=== PATIENT | female | born 1995 | race Two or more races ===

== ENCOUNTER 2017-04-11 09:20 | Emergency (ER) | payer OTHER ==
[~2017-04-11] VITALS: Ht 167.6 cm; Wt 59.0 kg
--- NOTE | 2017-04-11 10:00 | Emergency Room Report ---
History of Present Illness General Chief Complaint: Syncope Source: Patient Present Illness HPI 21-year-old female no significant past medical history presents with syncope. The patient states that she was sitting outside the stairs with other friends started to feel very lightheaded and nauseous passed out for unknown amount of time reportedly a few minutes. Denies hitting her head. States that she felt that she was going to faint. Denies any preceding chest pain or shortness of breath. Patient states that this has happened in the past to her about 4 times. She has seen a neurologist and told her that she "needs vitamin D." Patient denies any current headache nausea vomiting numbness or tingling of all extremities. Denies any palpitations. Patient denies having history of DVT or PE. Allergies: Coded Allergies: No Known Allergies (Unverified , 04/11/17) Patient History Past Medical History: none Past Surgical History: none Pertinent Family History: none Last Menstrual Period: 02/11/17 Now: No Nursing Documentation-[facility] Past Medical History: No Stated History Review of Systems Neurological: Reports: syncope All Other Systems: negative except mentioned in HPI Physical Exam Vital Signs Date Time Temp Pulse Resp B/P Pulse Ox O2 Delivery O2 Flow Rate FiO2 04/11/17 09:22 97.9 105 16 103/67 100 Room Air Sp02 EP Interpretation: reviewed, normal General Appearance: normal inspection, well appearing, no apparent distress, alert, GCS 15, non-toxic Head: normocephalic, atraumatic Eyes: bilateral eye EOMI, bilateral eye PERRL, bilateral eye normal inspection ENT: normal ENT inspection, normal pharynx, normal voice, moist mucus membranes Neck: normal inspection, full range of motion, supple, no bony tend Respiratory: normal inspection, lungs clear, normal breath sounds, no respiratory distress, no retraction, no wheezing, speaking full sentences, chest symmetrical Cardiovascular #1: normal inspection, no edema, normal capillary refill, tachycardia Gastrointestinal: normal inspection, non tender, soft, non-distended, no guarding Musculoskeletal: normal inspection, back normal, normal range of motion, non- tender Neurologic: normal inspection, alert, oriented x3, responsive, preforming machine operator III-XII nml as tested, motor strength/tone normal, sensory intact, normal gait, speech normal Psychiatric: normal inspection, judgement/insight normal, memory normal Skin: normal inspection, normal color, no rash, warm/dry, well hydrated, normal turgor Medical Decision Making Diagnostic Impression: Primary Impression: Syncope ER Course 21-year-old female with syncope Differential diagnoses Vasovagal versus cardiac arrhythmia versus electrolyte disturbance versus dehydration Plan EKG, chest x-ray routine labs ER course patient has remained stable during ED stay not episodes of syncope states she fels much better ambulating in ED EKG showed possible LEO V2 saddle like morphology concern for Savage D/w Cardiology Dr. Galeana - d/w case, reported not significant ekg as patient also likely with vasovasal syncope given symptoms. will follow up in his office. Patient is to be discharged to home. Patient is instructed to follow up with their primary care doctor within 5 days. Patient is instructed to follow up with cardiology Dr Galeana with 1 week. Strict return precautions discussed with patient such as fever, chills, GUERRA, nausea, vomiting, which may indicate severe illness. Patient verbalizes understanding and agrees with plan. , Laboratory Tests Test 04/11/17 09:15 04/11/17 09:50 04/11/17 13:10 Troponin I < 0.30 ng/mL (<=0.30) White Blood Count 7.6 K/UL (4.8-10.8) Red Blood Count 4.83 M/UL (4.20-5.40) Hemoglobin 15.5 G/DL (12.0-16.0) Hematocrit 45.0 % (37.0-47.0) Mean Corpuscular Volume 93 FL (80-99) Mean Corpuscular Hemoglobin 32.0 PG (27.0-31.0) H Mean Corpuscular Hemoglobin Concent 34.4 G/DL (32.0-36.0) Red Cell Distribution Width 10.7 % (11.6-14.8) L Platelet Count 324 K/UL (150-450) Mean Platelet Volume 8.1 FL (6.5-10.1) Neutrophils (%) (Auto) 77.0 % (45.0-75.0) H Lymphocytes (%) (Auto) 17.9 % (20.0-45.0) L Monocytes (%) (Auto) 4.0 % (1.0-10.0) Eosinophils (%) (Auto) 0.1 % (0.0-3.0) Basophils (%) (Auto) 1.0 % (0.0-2.0) Sodium Level 139 mEQ/L (135-145) Potassium Level 3.7 mEQ/L (3.4-4.9) Chloride Level 99 mEQ/L (98-107) Carbon Dioxide Level 26 mEQ/L (20-30) Anion Gap 14 (5-15) Blood Urea Nitrogen 9 mg/dL (7-23) Creatinine 0.8 mg/dL (0.5-0.9) Estimate Glomerular Filtration Rate > 60 mL/min (>60) Glucose Level 112 mg/dL (74-106) H Calcium Level 9.9 mg/dL (8.6-10.2) Total Bilirubin 0.5 mg/dL (0.0-1.2) Aspartate Amino Transferase (AST) 19 U/L (5-40) Alanine Aminotransferase (ALT) 17 U/L (3-33) Alkaline Phosphatase 26 U/L (35-104) L Total Protein 7.6 g/dL (6.6-8.7) Albumin 5.1 g/dL (3.5-5.2) Globulin 2.5 g/dL Albumin/Globulin Ratio 2.0 (1.0-2.7) Urine HCG, Qualitative Negative EKG Diagnostic Results Rate: tachycardiac Rhythm: NSR ST Segments: other - V2 with possible LEO concern for brugada Rhythm Strip Diag. Results EP Interpretation: yes Rhythm: NSR, no PVC's Chest X-Ray Diagnostic Results Chest X-Ray Diagnostic Results : Chest X-Ray Ordered: Yes # of Views/Limited/Complete: 1 View Indication: Chest Pain EP Interpretation: Yes Interpretation: no acute cardiopulmonary disease Impression: No acute disease Interpreting ER Provider: Electronically signed by Alfreda Valverde M.D. Last Vital Signs Date Time Temp Pulse Resp B/P Pulse Ox O2 Delivery O2 Flow Rate FiO2 04/11/17 09:22 97.9 105 16 103/67 100 Room Air Disposition: HOME, SELF-CARE Condition: Improved Referrals: NON PHYSICIAN (PCP) Alfreda Valverde M.D. Apr 11, 2017 10:00
[2017-04-11 10:20] LABS: EOSINOPHILS % (AUTO) 0.1 % (0.0-3.0); LYMPHOCYTES % (AUTO) 17.9 % (20.0-45.0); MEAN CORPUSCULAR HGB CONC 34.4 G/DL (32.0-36.0); MEAN CORPUSCULAR VOLUME 93 FL (80-99); MEAN PLATELET VOLUME 8.1 FL (6.5-10.1); PLATELET COUNT 324 K/UL (150-450); RED BLOOD COUNT 4.83 M/UL (4.20-5.40); RED CELL DISTRIBUTION WIDTH 10.7 % (11.6-14.8); WHITE BLOOD COUNT 7.6 K/UL (4.8-10.8)
[2017-04-11 10:33] LABS: ALANINE AMINOTRANSFERASE 17 U/L (3-33); ANION GAP 14 (5-15); ASPARTATE AMINO TRANSFERASE 19 U/L (5-40); CALCIUM 9.9 mg/dL (8.6-10.2); CARBON DIOXIDE 26 mEQ/L (20-30); CHLORIDE 99 mEQ/L (98-107); CREATININE 0.8 mg/dL (0.5-0.9); GLOMERULAR FILTRATION RATE > 60 mL/min (>60); HEMOLYSIS 18; POTASSIUM 3.7 mEQ/L (3.4-4.9); SODIUM 139 mEQ/L (135-145); TOTAL PROTEIN 7.6 g/dL (6.6-8.7)
--- NOTE | 2017-04-11 10:49 | Diagnostic Imaging Report ---
Indication: Shortness of breath Technique: XRAY CHEST 1 V Comparison: None Findings: The cardiomediastinal silhouette is within normal limits. There is no focal consolidation, pneumothorax or pleural effusion. Osseous structures demonstrate no acute abnormality. Bilateral nipple piercings are noted. Impression: No acute cardiopulmonary disease.
[2017-04-11 11:02] LABS: TROPONIN I < 0.30 ng/mL (<=0.30)
[2017-04-11 13:25] VITALS: BP 103/56
[2017-04-11] MEDS ORDERED: HYDROmorphone 1mg/ml Carpuject IVP ONE (13:30)
[2017-04-11 13:45] VITALS: BP 103/56
--- NOTE | 2017-04-15 21:24 | Cardiology Report ---
APPROVED REPORT EKG Measurement Heart [id number] Normal sinus rhythm Possible Left atrial enlargement Borderline ECG
== END 2017-04-11 13:45 | disposition home or self-care (01) ==
LOC: EMR 09:37
DX: R55 Syncope and collapse (principal); R06.02 Shortness of breath
CPT/HCPCS: 36415; 71010; 80053; 81025; 84484; 85025; 93005; 96374; 99284; J2405